=== PATIENT | female | born 1990 | race Caucasian/White ===

== ENCOUNTER 2016-09-21 14:37 | Emergency (ER) | payer SELFPAY ==
[2016-09-21 15:02] VITALS: BP 113/60; PULSE 95; RESP 16; TEMP 98.4; O2SAT 100
--- NOTE | 2016-09-21 15:37 | ED PDOC ---
HPI: Back Time Seen by Provider: 09/21/16 15:15 Chief Complaint (Nursing): Back Pain Chief Complaint (Provider): Back Pain History Per: Patient History/Exam Limitations: no limitations Onset/Duration Of Symptoms: Days Current Symptoms Are (Timing): Still Present Quality Of Discomfort: "Pain" Severity: Moderate Previous Symptoms: None Associated Symptoms: None Exacerbating Factor(s): Movement Additional Complaint(s): Patient is a 26 year old female who presents to ED for back pain for 2 weeks. Patient states she was helping to change car tire when she developed lower back pain that has since worsened. Notes that she initially tried Motrin for the pain but due to her Gastritis has needed to stop taking it. Reports pain radiates into bilateral legs. Denies urinary/bowel incontinence, weakness, numbness or paresthesia. Patient requesting diagnostic studies Past Medical History Reviewed: Historical Data, Nursing Documentation, Vital Signs Vital Signs: Last Vital Signs Temp 98.4 F 09/21/16 14:58 Pulse 95 H 09/21/16 14:58 Resp 16 09/21/16 14:58 BP 113/60 09/21/16 14:58 Pulse Ox 100 09/21/16 14:58 - Medical History PMH: Asthma, Gastritis - Surgical History Surgical History: No Surg Hx - Family History Family History: States: Unknown Family Hx - Living Arrangements Living Arrangements: With Family - Immunization History Hx Tetanus Toxoid Vaccination: No Hx Influenza Vaccination: No Hx Pneumococcal Vaccination: No - Home Medications Home Medications: Ambulatory Orders Medication Instructions Recorded Clindamycin [Cleocin] 300 mg PO Q6 #28 cap 05/09/16 Prednisone [Deltasone] 40 mg PO DAILY #6 tablet 05/09/16 Lansoprazole [Prevacid] 30 mg PO DAILY #15 capsule. 09/21/16 Naproxen [Naprosyn Tab] 1 tab PO Q8 PRN #15 tab 09/21/16 diaZEpam [Valium] 5 mg PO Q6 PRN #8 tab 09/21/16 - Allergies Allergies/Adverse Reactions: Allergies Allergy/AdvReac Type Severity Reaction Status Date / Time No Known Allergies Allergy Verified 01/05/16 11:18 Review of Systems Cardiovascular: Negative for: Chest Pain Gastrointestinal: Negative for: Nausea, Vomiting, Diarrhea Genitourinary Female: Negative for: Incontinence Musculoskeletal: Positive for: Back Pain Neurological: Negative for: Weakness, Numbness Physical Exam - Reviewed Nursing Documentation Reviewed: Yes Vital Signs Reviewed: Yes - Physical Exam Appears: Positive for: Non-toxic, No Acute Distress Skin: Positive for: Normal Color, Warm Eye Exam: Positive for: Normal appearance Neck: Positive for: Normal, Painless ROM Back: Positive for: Normal Inspection, Other (bilateral paralumbar tenderness ) . Negative for: L CVA Tenderness, R CVA Tenderness Extremity: Positive for: Normal ROM Neurologic/Psych: Positive for: Alert, Oriented. Negative for: Motor/Sensory Deficits - ECG O2 Sat by Pulse Oximetry: 100 Medical Decision Making Medical Decision Making: Time: 1519 Initial Impression: Back pain Initial Plan: -- Urine preg -- Toradol IM Time: 1554 Patient refused the Toradol at this time, states she does not want an injection. Requesting something PO Scribe Attestation: Documented by Elba Askew, acting as a scribe for Billy Alamo PA-C. Provider Scribe Attestation: All medical record entries made by the Scribe were at my direction and personally dictated by me. I have reviewed the chart and agree that the record accurately reflects my personal performance of the history, physical exam, medical decision making, and the department course for this patient. I have also personally directed, reviewed, and agree with the discharge instructions and disposition. Disposition - Clinical Impression Clinical Impression: Back strain - Patient ED Disposition Is Patient to be Admitted: No - Disposition Referrals: [facility] [Outside] Disposition: Routine/Home Disposition Time: 16:11 Condition: FAIR Prescriptions: Naproxen [Naprosyn Tab] 1 tab PO Q8 PRN #15 tab PRN Reason: Pain, Moderate (4-7) Lansoprazole [Prevacid] 30 mg PO DAILY #15 capsule. diaZEpam [Valium] 5 mg PO Q6 PRN #8 tab PRN Reason: Muscle Spasm Instructions: Back Pain (ED) Forms: [facility] ED School/Work Excuse
== END 2016-09-21 16:12 | disposition home or self-care (01) ==
LOC: H.ER 14:37
DX: M54.9 Dorsalgia, unspecified (principal)

== ENCOUNTER 2016-11-15 14:37 | Emergency (ER) | payer MEDICAID ==
[2016-11-15 14:47] VITALS: BP 98/70; PULSE 75; RESP 18; TEMP 98; O2SAT 100
[2016-11-15] MEDS ORDERED: Sodium Chloride 0.9% 1,000 ML IV STA (15:33)
--- NOTE | 2016-11-15 16:07 | ED PDOC ---
HPI: Abdomen Time Seen by Provider: 11/15/16 15:22 Chief Complaint (Nursing): Abdominal Pain Chief Complaint (Provider): abdominal pain History Per: Patient History/Exam Limitations: no limitations Onset/Duration Of Symptoms: Days (4) Outside of [place] travel?: No Current Symptoms Are (Timing): Still Present Location Of Pain/Discomfort: Diffuse Quality Of Discomfort: Cramping Associated Symptoms: Nausea (only with eating. ,), Diarrhea (soft stool), Loss Of Appetite. denies: Fever, Chills, Vomiting, Back Pain, Chest Pain, Constipation, Urinary Symptoms Alleviating Factors: Other (partner in household with same symptoms) Past Medical History Reviewed: Historical Data, Nursing Documentation, Vital Signs Vital Signs: Last Vital Signs Temp 98.0 F 11/15/16 14:43 Pulse 75 11/15/16 14:43 Resp 18 11/15/16 14:43 BP 98/70 L 11/15/16 14:43 Pulse Ox 100 11/15/16 16:29 - Medical History PMH: Asthma, Gastritis - Family History Family History: States: Unknown Family Hx - Immunization History Hx Tetanus Toxoid Vaccination: No Hx Influenza Vaccination: No Hx Pneumococcal Vaccination: No - Home Medications Home Medications: Ambulatory Orders Medication Instructions Recorded Clindamycin [Cleocin] 300 mg PO Q6 #28 cap 05/09/16 Prednisone [Deltasone] 40 mg PO DAILY #6 tablet 05/09/16 Lansoprazole [Prevacid] 30 mg PO DAILY #15 capsule. 09/21/16 Naproxen [Naprosyn Tab] 1 tab PO Q8 PRN #15 tab 09/21/16 diaZEpam [Valium] 5 mg PO Q6 PRN #8 tab 09/21/16 Dicyclomine [Bentyl] 20 mg PO TID #30 tab 11/15/16 Famotidine [Pepcid] 20 mg PO BID #16 tab 11/15/16 - Allergies Allergies/Adverse Reactions: Allergies Allergy/AdvReac Type Severity Reaction Status Date / Time No Known Allergies Allergy Verified 01/05/16 11:18 Review of Systems ROS Statement: Except As Marked, All Systems Reviewed And Found Negative Constitutional: Negative for: Fever, Chills Gastrointestinal: Positive for: Nausea, Abdominal Pain. Negative for: Vomiting Physical Exam - Reviewed Nursing Documentation Reviewed: Yes Vital Signs Reviewed: Yes - Physical Exam Appears: Positive for: Non-toxic, No Acute Distress, Uncomfortable Head Exam: Positive for: ATRAUMATIC, NORMAL INSPECTION, NORMOCEPHALIC Skin: Positive for: Normal Color, Warm, DRY Eye Exam: Positive for: EOMI, Normal appearance, PERRL ENT: Positive for: Normal ENT Inspection Neck: Positive for: Normal, Painless ROM Cardiovascular/Chest: Positive for: Regular Rate, Rhythm Respiratory: Positive for: CNT, Normal Breath Sounds Gastrointestinal/Abdominal: Positive for: Bowel Sounds, Soft, Tenderness ( diffuse) Back: Positive for: Normal Inspection Extremity: Positive for: Normal ROM Neurologic/Psych: Positive for: Alert, Oriented - Laboratory Results Result Diagrams: 11/15/16 16:00 11/15/16 16:00 - ECG O2 Sat by Pulse Oximetry: 100 - Progress ED Course And Treament: impression: viral GI. will give fluids, bently labs re-eval Medical Decision Making Medical Decision Making: dx: viral GI tx in Ed effective pt feels better will be d/c on bently for cramps and pepcid for nausea advised to return to ED if worsened Disposition - Clinical Impression Clinical Impression: Abdominal cramps - Patient ED Disposition Is Patient to be Admitted: No Counseled Patient/Family Regarding: Studies Performed, Diagnosis, Need For Followup, Rx Given - Disposition Disposition: Routine/Home Disposition Time: 16:43 Condition: STABLE Prescriptions: Dicyclomine [Bentyl] 20 mg PO TID #30 tab Famotidine [Pepcid] 20 mg PO BID #16 tab Instructions: Gastroenteritis (ED) Forms: [facility] ED School/Work Excuse Print Language: ECUADOREAN
[2016-11-15 16:16] LABS: BASO # 0.1 K/uL (0.0-0.2); EOS # 0.2 K/uL (0.0-0.7); EOS % 2.1 % (0.0-4.0); HEMATOCRIT 40.2 % (34.0-47.0); LYMPH % 37.4 % (20.0-40.0); MEAN CELL VOLUME 83.1 fl (81.0-99.0); MEAN CORPUSCULAR HEMOGLOBIN 28.5 pg (27.0-31.0); MEAN CORPUSCULAR HGB CONC 34.3 g/dL (33.0-37.0); MEAN PLATELET VOLUME 8.5 fl (7.2-11.7); MONO # 0.7 K/uL (0.0-0.8); MONO % 8.3 % (0.0-10.0); NEUT # 4.1 K/uL (1.8-7.0); NEUT % 51.2 % (50.0-75.0); RED CELL DISTRIBUTION WIDTH 13.6 % (11.5-14.5); WHITE BLOOD COUNT 7.9 K/uL (4.8-10.8)
[2016-11-15 16:26] LABS: ALB/GLOB RATIO 1.4 (1.0-2.1); ALKALINE PHOSPHATASE 45 U/L (38-126); ALT/SGPT 26 U/L (9-52); AST/SGOT 28 U/L (14-36); BILIRUBIN,TOTAL 1.3 mg/dl (0.2-1.3); BLOOD UREA NITROGEN 10 mg/dl (7-17); CALCIUM 9.3 mg/dL (8.4-10.2); CARBON DIOXIDE 26 mmol/L (22-30); CHLORIDE 103 mmol/L (98-107); GFR AFRICAN-AMERICAN > 60; GLUCOSE,RANDOM 70 mg/dL (65-105); SODIUM 138 mmol/l (132-148); TOTAL PROTEIN 7.8 G/DL (6.3-8.2)
[2016-11-15 16:29] LABS: POTASSIUM 4.9 MMOL/L (3.6-5.0)
[2016-11-15 17:41] LABS: RBC URINE 4 /hpf (0-3); URINE BACTERIA RARE (<OCC); URINE BILIRUBIN NEGATIVE (NEGATIVE); URINE BLOOD NEGATIVE (NEGATIVE); URINE COLOR YELLOW (YELLOW); URINE GLUCOSE (UA) NEG (Normal); URINE KETONE NEGATIVE (NEGATIVE); URINE LEUKOCYTE ESTERASE NEG Leu/uL (Negative); URINE PROTEIN NEGATIVE (NEGATIVE); URINE UROBILINOGEN 0.2-1.0 mg/dL (0.2-1.0); WBC URINE 1 /hpf (0-5)
== END 2016-11-15 17:05 | disposition home or self-care (01) ==
LOC: H.ER 14:37
DX: K29.70 Gastritis, unspecified, without bleeding (principal); R11.0 Nausea; J45.909 Unspecified asthma, uncomplicated; R19.7 Diarrhea, unspecified

== ENCOUNTER 2017-02-26 17:09 | Emergency (ER) | payer MEDICAID ==
[2017-02-26 17:27] VITALS: BP 105/71; PULSE 90; RESP 18; TEMP 98; O2SAT 100
--- NOTE | 2017-02-26 19:02 | ED PDOC ---
HPI: Skin/Bite Injury Time Seen by Provider: 02/26/17 17:34 Chief Complaint (Nursing): Abnormal Skin Integrity Chief Complaint (Provider): Abscess History Per: Patient Additional Complaint(s): Pt in ED for possible abscess below umbilical area x 4 days. Reports yellowish drainage. Denies fever. Pt is concerned it may be infected. Past Medical History Vital Signs: Last Vital Signs Temp 98 F 02/26/17 17:23 Pulse 90 02/26/17 17:23 Resp 18 02/26/17 17:23 BP 105/71 02/26/17 17:23 Pulse Ox 100 02/26/17 17:23 - Medical History PMH: Asthma, Gastritis - Family History Family History: States: Unknown Family Hx - Immunization History Hx Tetanus Toxoid Vaccination: No Hx Influenza Vaccination: No Hx Pneumococcal Vaccination: No - Home Medications Home Medications: Ambulatory Orders Medication Instructions Recorded Clindamycin [Cleocin] 300 mg PO Q6 #28 cap 05/09/16 Prednisone [Deltasone] 40 mg PO DAILY #6 tablet 05/09/16 Lansoprazole [Prevacid] 30 mg PO DAILY #15 capsule.dr 09/21/16 Naproxen [Naprosyn Tab] 1 tab PO Q8 PRN #15 tab 09/21/16 diaZEpam [Valium] 5 mg PO Q6 PRN #8 tab 09/21/16 Dicyclomine [Bentyl] 20 mg PO TID #30 tab 11/15/16 Famotidine [Pepcid] 20 mg PO BID #16 tab 11/15/16 Clindamycin [Cleocin] 300 mg PO BID #14 cap 02/26/17 Ibuprofen [Motrin] 600 mg PO Q6 #20 tab 02/26/17 - Allergies Allergies/Adverse Reactions: Allergies Allergy/AdvReac Type Severity Reaction Status Date / Time No Known Allergies Allergy Verified 01/05/16 11:18 - ECG O2 Sat by Pulse Oximetry: 100 Disposition - Clinical Impression Clinical Impression: Abscess, Cellulitis - Disposition Condition: STABLE Prescriptions: Clindamycin [Cleocin] 300 mg PO BID #14 cap Ibuprofen [Motrin] 600 mg PO Q6 #20 tab Instructions: Abscess (ED), Cellulitis (ED) Forms: [employer] (Ukrainian)
== END 2017-02-26 19:10 | disposition home or self-care (01) ==
LOC: H.ER 17:09
DX: L02.211 Cutaneous abscess of abdominal wall (principal)

== ENCOUNTER 2017-03-18 17:27 | Emergency (ER) | payer MEDICAID ==
[2017-03-18 17:36] VITALS: BP 103/65; PULSE 71; RESP 18; TEMP 99; O2SAT 100
--- NOTE | 2017-03-18 18:34 | ED PDOC ---
HPI: CCC, URI, Sore Throat Time Seen by Provider: 03/18/17 17:31 Chief Complaint (Nursing): ENT Problem Chief Complaint (Provider): Throat pain History Per: Patient History/Exam Limitations: no limitations Onset/Duration Of Symptoms: Days (2) Additional Complaint(s): Patient is a 26 y/o female with a past medical history of asthma presenting to the emergency department for a sore throat ongoing for two days with associated feeling of general weakness. Denies ear pain or other complaints. PCP: Dr. Kyara Marie Past Medical History Reviewed: Historical Data, Nursing Documentation, Vital Signs Vital Signs: Last Vital Signs Temp 99 F 03/18/17 17:32 Pulse 71 03/18/17 17:32 Resp 18 03/18/17 17:32 BP 103/65 03/18/17 17:32 Pulse Ox 100 03/18/17 18:40 - Medical History PMH: Asthma, Gastritis - Surgical History Surgical History: No Surg Hx - Family History Family History: States: Unknown Family Hx - Immunization History Hx Tetanus Toxoid Vaccination: No Hx Influenza Vaccination: No Hx Pneumococcal Vaccination: No - Home Medications Home Medications: Ambulatory Orders Medication Instructions Recorded Clindamycin [Cleocin] 300 mg PO Q6 #28 cap 05/09/16 Prednisone [Deltasone] 40 mg PO DAILY #6 tablet 05/09/16 Lansoprazole [Prevacid] 30 mg PO DAILY #15 capsule. 09/21/16 Naproxen [Naprosyn Tab] 1 tab PO Q8 PRN #15 tab 09/21/16 diaZEpam [Valium] 5 mg PO Q6 PRN #8 tab 09/21/16 Dicyclomine [Bentyl] 20 mg PO TID #30 tab 11/15/16 Famotidine [Pepcid] 20 mg PO BID #16 tab 11/15/16 Clindamycin [Cleocin] 300 mg PO BID #14 cap 02/26/17 Ibuprofen [Motrin] 600 mg PO Q6 #20 tab 02/26/17 Ibuprofen [Motrin] 600 mg PO Q6 #20 tab 03/18/17 - Allergies Allergies/Adverse Reactions: Allergies Allergy/AdvReac Type Severity Reaction Status Date / Time No Known Allergies Allergy Verified 01/05/16 11:18 Review of Systems ROS Statement: Except As Marked, All Systems Reviewed And Found Negative Constitutional: Positive for: Weakness ENT: Positive for: Throat Pain. Negative for: Ear Pain Physical Exam - Reviewed Nursing Documentation Reviewed: Yes Vital Signs Reviewed: Yes - Physical Exam Appears: Positive for: Well, Non-toxic, No Acute Distress Head Exam: Positive for: ATRAUMATIC, NORMAL INSPECTION, NORMOCEPHALIC Skin: Positive for: Normal Color, Warm, Dry Eye Exam: Positive for: Normal appearance ENT: Positive for: Pharyngeal Erythema. Negative for: Other (pharyngeal ulcerations) Neck: Positive for: Normal Cardiovascular/Chest: Positive for: Regular Rate, Rhythm Respiratory: Negative for: Accessory Muscle Use, Respiratory Distress Extremity: Positive for: Normal ROM Neurologic/Psych: Positive for: Alert, Oriented (x3) - ECG O2 Sat by Pulse Oximetry: 100 (RA) Pulse Ox Interpretation: Normal Medical Decision Making Medical Decision Making: Time: 18:00 Initial impression: Throat pain Initial plan: Motrin 600 mg PO Rapid STREP test Strep (-) Scribe Attestation: Documented by Paula Carmichael, acting as a scribe for MARY Ward. Provider Scribe Attestation: All medical record entries made by the Scribe were at my direction and personally dictated by me. I have reviewed the chart and agree that the record accurately reflects my personal performance of the history, physical exam, medical decision making, and the department course for this patient. I have also personally directed, reviewed, and agree with the discharge instructions and disposition. Disposition - Clinical Impression Clinical Impression: Pharyngitis - Patient ED Disposition Is Patient to be Admitted: No - Disposition Disposition: Routine/Home Disposition Time: 19:00 Condition: STABLE Prescriptions: Ibuprofen [Motrin] 600 mg PO Q6 #20 tab Instructions: Pharyngitis (ED) Forms: [employer] (Pashto) - POA Present On Arrival: None
== END 2017-03-18 19:34 | disposition home or self-care (01) ==
LOC: H.ER 17:27
DX: J02.9 Acute pharyngitis, unspecified (principal)

== ENCOUNTER 2017-05-04 22:12 | Emergency (ER) | payer MEDICAID ==
[2017-05-04 22:26] VITALS: BP 119/72; RESP 16; TEMP 99.1; O2SAT 99
[2017-05-04] MEDS ORDERED: Albuterol-Ipratrop 3 mg / 0.5 (3 ml) UD ONE (22:36)
[2017-05-04] MEDS ORDERED: Albuterol-Ipratrop 3 mg / 0.5 (3 ml) UD INH STA (22:40)
[2017-05-04 22:44] VITALS: PULSE 73
--- NOTE | 2017-05-04 22:49 | ED PDOC ---
HPI: CCC, URI, Sore Throat Time Seen by Provider: 05/04/17 22:36 Chief Complaint (Nursing): Cough, Cold, Congestion Chief Complaint (Provider): URI History Per: Patient Additional Complaint(s): Pt ambulates into ED with c.o cough x 3 days. Patient c.o difficulty breathing when laying down. Patient states she was needs ventolin pump but doesnt have f.u with MD until Tuesday. Past Medical History Reviewed: Nursing Documentation, Vital Signs Vital Signs: Last Vital Signs Temp 99.1 F 05/04/17 22:22 Pulse 73 05/04/17 22:41 Resp 16 05/04/17 22:22 BP 119/72 05/04/17 22:22 Pulse Ox 99 05/06/17 20:41 - Medical History PMH: Asthma, Gastritis - Surgical History Surgical History: No Surg Hx - Family History Family History: States: Unknown Family Hx - Living Arrangements Living Arrangements: With Family - Social History Current smoker - smoking cessation education provided: No Alcohol: None Drugs: Denies - Immunization History Hx Tetanus Toxoid Vaccination: No Hx Influenza Vaccination: No Hx Pneumococcal Vaccination: No - Home Medications Home Medications: Ambulatory Orders Medication Instructions Recorded Clindamycin [Cleocin] 300 mg PO Q6 #28 cap 05/09/16 Prednisone [Deltasone] 40 mg PO DAILY #6 tablet 05/09/16 Lansoprazole [Prevacid] 30 mg PO DAILY #15 capsule. 09/21/16 Naproxen [Naprosyn Tab] 1 tab PO Q8 PRN #15 tab 09/21/16 diaZEpam [Valium] 5 mg PO Q6 PRN #8 tab 09/21/16 Dicyclomine [Bentyl] 20 mg PO TID #30 tab 11/15/16 Famotidine [Pepcid] 20 mg PO BID #16 tab 11/15/16 Clindamycin [Cleocin] 300 mg PO BID #14 cap 02/26/17 Ibuprofen [Motrin] 600 mg PO Q6 #20 tab 02/26/17 Ibuprofen [Motrin] 600 mg PO Q6 #20 tab 03/18/17 Albuterol 0.042% [Albuterol 0.042% 3 ml IH Q6 #1 packet 05/04/17 Inhal Yvrose (1.25mg/3ml) UD] Methylprednisolone [Medrol Dose 4 mg PO DAILY #21 mg 05/04/17 Pack (21 tabs)] Nebulizer [Compact Compressor 1 dev XX PRN PRN #1 dev 05/04/17 Nebulizer] - Allergies Allergies/Adverse Reactions: Allergies Allergy/AdvReac Type Severity Reaction Status Date / Time No Known Allergies Allergy Verified 01/05/16 11:18 Review of Systems ROS Statement: Except As Marked, All Systems Reviewed And Found Negative Respiratory: Positive for: Cough, Shortness of Breath Physical Exam - Reviewed Nursing Documentation Reviewed: Yes Vital Signs Reviewed: Yes - Physical Exam Appears: Positive for: Well, Non-toxic, No Acute Distress Head Exam: Positive for: ATRAUMATIC, NORMAL INSPECTION, NORMOCEPHALIC Skin: Positive for: Normal Color, Warm, DRY Eye Exam: Positive for: EOMI, Normal appearance, PERRL ENT: Positive for: Normal ENT Inspection Neck: Positive for: Normal, Painless ROM Cardiovascular/Chest: Positive for: Regular Rate, Rhythm Respiratory: Positive for: CNT, Normal Breath Sounds Gastrointestinal/Abdominal: Positive for: Normal Exam, Bowel Sounds, Soft Back: Positive for: Normal Inspection Extremity: Positive for: Normal ROM Neurologic/Psych: Positive for: Alert, Oriented - ECG O2 Sat by Pulse Oximetry: 99 Medical Decision Making Medical Decision Making: Medicated with Duo neb and prednisone PO Pt doing well on re-eval, no complaints. Lungs CTA bilaterally POX: 100% on RA Disposition - Clinical Impression Clinical Impression: URI (upper respiratory infection) - Patient ED Disposition Is Patient to be Admitted: No - Disposition Disposition: Routine/Home Disposition Time: 23:00 Condition: STABLE Prescriptions: Albuterol 0.042% [Albuterol 0.042% Inhal Yvrose (1.25mg/3ml) UD] 3 ml IH Q6 #1 packet Methylprednisolone [Medrol Dose Pack (21 tabs)] 4 mg PO DAILY #21 mg Nebulizer [Compact Compressor Nebulizer] 1 dev XX PRN PRN #1 dev PRN Reason: Shortness Of Breath Instructions: Upper Respiratory Infection (ED) Forms: [email or web address] (Tanzanian) - POA Present On Arrival: None
== END 2017-05-04 22:58 | disposition home or self-care (01) ==
LOC: H.ER 22:12
DX: J45.909 Unspecified asthma, uncomplicated (principal)

== ENCOUNTER 2017-06-29 17:00 | Emergency (ER) | payer SELFPAY ==
[2017-06-29 17:47] VITALS: BP 104/58; PULSE 84; RESP 16; TEMP 99; O2SAT 100
--- NOTE | 2017-06-29 19:02 | ED PDOC ---
HPI: CCC, URI, Sore Throat Time Seen by Provider: 06/29/17 18:50 Chief Complaint (Nursing): Cough, Cold, Congestion Chief Complaint (Provider): Cough History Per: Patient History/Exam Limitations: no limitations Onset/Duration Of Symptoms: Days (x3) Current Symptoms Are (Timing): Still Present Associated Symptoms: Myalgias Additional Complaint(s): 26 y/o female with a past medical history of asthma, presents to the emergency department complaining of a cough and body aches for 3 days. Also reports her chest feels tight. No fever upon arrival. Patient has been taking nebulizer treatments, Dayquil, and Robitussin at home without relief. She denies any vomiting or diarrhea. PMD: Dr. Kyara Marie Past Medical History Reviewed: Historical Data, Nursing Documentation, Vital Signs Vital Signs: Last Vital Signs Temp 99.0 F 06/29/17 17:45 Pulse 84 06/29/17 17:45 Resp 16 06/29/17 17:45 BP 104/58 L 06/29/17 17:45 Pulse Ox 100 06/29/17 19:04 - Medical History PMH: Asthma, Gastritis - Family History Family History: States: Unknown Family Hx - Immunization History Hx Tetanus Toxoid Vaccination: No Hx Influenza Vaccination: No Hx Pneumococcal Vaccination: No - Home Medications Home Medications: Ambulatory Orders Medication Instructions Recorded Clindamycin [Cleocin] 300 mg PO Q6 #28 cap 05/09/16 Prednisone [Deltasone] 40 mg PO DAILY #6 tablet 05/09/16 Lansoprazole [Prevacid] 30 mg PO DAILY #15 capsule. 09/21/16 Naproxen [Naprosyn Tab] 1 tab PO Q8 PRN #15 tab 09/21/16 diaZEpam [Valium] 5 mg PO Q6 PRN #8 tab 09/21/16 Dicyclomine [Bentyl] 20 mg PO TID #30 tab 11/15/16 Famotidine [Pepcid] 20 mg PO BID #16 tab 11/15/16 Clindamycin [Cleocin] 300 mg PO BID #14 cap 02/26/17 Ibuprofen [Motrin] 600 mg PO Q6 #20 tab 02/26/17 Ibuprofen [Motrin] 600 mg PO Q6 #20 tab 03/18/17 Albuterol 0.042% [Albuterol 0.042% 3 ml IH Q6 #1 packet 05/04/17 Inhal Yvrose (1.25mg/3ml) UD] Methylprednisolone [Medrol Dose 4 mg PO DAILY #21 mg 05/04/17 Pack (21 tabs)] Nebulizer [Compact Compressor 1 dev XX PRN PRN #1 dev 05/04/17 Nebulizer] Acetaminophen [Acetaminophen Extra 2 tab PO Q6 PRN #24 tablet 06/29/17 Strength] Ibuprofen [Motrin] 600 mg PO Q8 PRN #21 tab 06/29/17 predniSONE [predniSONE Tab] 2 tab PO DAILY #10 tab 06/29/17 - Allergies Allergies/Adverse Reactions: Allergies Allergy/AdvReac Type Severity Reaction Status Date / Time No Known Allergies Allergy Verified 06/29/17 17:45 Review of Systems ROS Statement: Except As Marked, All Systems Reviewed And Found Negative Constitutional: Positive for: Other (body aches). Negative for: Fever, Chills Cardiovascular: Positive for: Other (chest tightness) Respiratory: Positive for: Cough. Negative for: Shortness of Breath, Wheezing Gastrointestinal: Negative for: Vomiting, Diarrhea Physical Exam - Reviewed Nursing Documentation Reviewed: Yes Vital Signs Reviewed: Yes - Physical Exam Appears: Positive for: Non-toxic, No Acute Distress Head Exam: Positive for: ATRAUMATIC, NORMAL INSPECTION, NORMOCEPHALIC Skin: Positive for: Normal Color, Warm, Dry Eye Exam: Positive for: EOMI, Normal appearance, PERRL ENT: Positive for: Pharynx Is (wnl), TM Is/Are (normal bilaterally). Negative for: Tonsillar Exudate, Tonsillar Swelling Neck: Positive for: Normal, Supple Cardiovascular/Chest: Positive for: Regular Rate, Rhythm. Negative for: Murmur Respiratory: Positive for: Decreased Breath Sounds (diminished). Negative for: Rales, Rhonchi, Wheezing, Respiratory Distress Extremity: Positive for: Normal ROM. Negative for: Deformity Neurologic/Psych: Positive for: Alert, Oriented - ECG O2 Sat by Pulse Oximetry: 100 (RA) Pulse Ox Interpretation: Normal Medical Decision Making Medical Decision Making: Time: 18:59 Upon provider evaluation patient is medically stable, and requires no further treatment in the ED at this time. Advised to continue nebulizer treatments at home. Patient will be discharged home with Rx for Tylenol, Motrin, and Prednisone. Counseling was provided and all questions were answered regarding diagnosis and need for follow up with PMD. There is agreement to discharge plan. Return if symptoms persist or worsen. Scribe Attestation: Documented by Leydi Loredo, acting as a scribe for Billy Alamo PA-C Provider Scribe Attestation: All medical record entries made by the Scribe were at my direction and personally dictated by me. I have reviewed the chart and agree that the record accurately reflects my personal performance of the history, physical exam, medical decision making, and the department course for this patient. I have also personally directed, reviewed, and agree with the discharge instructions and disposition. Disposition - Clinical Impression Clinical Impression: Cough - Patient ED Disposition Is Patient to be Admitted: No - Disposition Referrals: [facility] [Outside] Disposition: Routine/Home Disposition Time: 19:00 Condition: FAIR Prescriptions: Acetaminophen [Acetaminophen Extra Strength] 2 tab PO Q6 PRN #24 tablet PRN Reason: Fever >100.4 F Ibuprofen [Motrin] 600 mg PO Q8 PRN #21 tab PRN Reason: Fever >100.4 F predniSONE [predniSONE Tab] 2 tab PO DAILY #10 tab Instructions: Viral Syndrome (ED) Forms: [employer] (Uzbek), [facility] ED School/Work Excuse
== END 2017-06-29 22:16 | disposition home or self-care (01) ==
LOC: H.ER 17:00
DX: J45.909 Unspecified asthma, uncomplicated (principal)

== ENCOUNTER 2018-03-12 23:29 | Emergency (ER) | payer SELFPAY ==
[2018-03-13] VITALS: BP 109/75; PULSE 84; RESP 16; TEMP 98.1; O2SAT 97
[2018-03-13] MEDS ORDERED: Lidocaine 2% w Epi 1:100,000 Inj IJ ONE (00:36)
--- NOTE | 2018-03-13 02:44 | ED PDOC ---
Lower Extremity Pain/Injury Time Seen by Provider: 03/13/18 00:25 Chief Complaint (Nursing): Abnormal Skin Integrity Chief Complaint (Provider): Abnormal Skin Integrity History Per: Patient History/Exam Limitations: no limitations Onset/Duration Of Symptoms: Days (x 2) Current Symptoms Are (Timing): Still Present Additional Complaint(s): 27 year old female presents to the ED with right buttock irritation due to skin tag for 2 days. Area is becoming red and patient is concerned there is an infection. She is unable to sit due to pain. Denies fever and other complaints. PMD: none provided Past Medical History Reviewed: Historical Data, Nursing Documentation, Vital Signs Vital Signs: Last Vital Signs Temp 98.1 F 03/12/18 23:58 Pulse 84 03/12/18 23:58 Resp 16 03/12/18 23:58 BP 109/75 03/12/18 23:58 Pulse Ox 97 03/12/18 23:58 - Medical History PMH: Asthma, Gastritis - Surgical History Surgical History: No Surg Hx - Family History Family History: States: Unknown Family Hx - Immunization History Hx Tetanus Toxoid Vaccination: No Hx Influenza Vaccination: No Hx Pneumococcal Vaccination: No - Home Medications Home Medications: Ambulatory Orders Medication Instructions Recorded Clindamycin [Cleocin] 300 mg PO Q6 #28 cap 05/09/16 Prednisone [Deltasone] 40 mg PO DAILY #6 tablet 05/09/16 Lansoprazole [Prevacid] 30 mg PO DAILY #15 capsule. 09/21/16 RX: Naproxen [Naprosyn Tab] 1 tab PO Q8 PRN #15 tab 09/21/16 diaZEpam [Valium] 5 mg PO Q6 PRN #8 tab 09/21/16 Dicyclomine [Bentyl] 20 mg PO TID #30 tab 11/15/16 Famotidine [Pepcid] 20 mg PO BID #16 tab 11/15/16 Ibuprofen [Motrin] 600 mg PO Q6 #20 tab 02/26/17 RX: Clindamycin [Cleocin] 300 mg PO BID #14 cap 02/26/17 Ibuprofen [Motrin] 600 mg PO Q6 #20 tab 03/18/17 Albuterol 0.042% [Albuterol 0.042% 3 ml IH Q6 #1 packet 05/04/17 Inhal Yvrose (1.25mg/3ml) UD] Methylprednisolone [Medrol Dose 4 mg PO DAILY #21 mg 05/04/17 Pack (21 tabs)] RX: Nebulizer [Compact Compressor 1 dev XX PRN PRN #1 dev 05/04/17 Nebulizer] Acetaminophen [Acetaminophen Extra 2 tab PO Q6 PRN #24 tablet 06/29/17 Strength] Ibuprofen [Motrin] 600 mg PO Q8 PRN #21 tab 06/29/17 RX: predniSONE [predniSONE Tab] 2 tab PO DAILY #10 tab 06/29/17 - Allergies Allergies/Adverse Reactions: Allergies Allergy/AdvReac Type Severity Reaction Status Date / Time No Known Allergies Allergy Verified 06/29/17 17:45 Review of Systems ROS Statement: Except As Marked, All Systems Reviewed And Found Negative Constitutional: Negative for: Fever Skin: Positive for: Other (skin tag on right buttock) Physical Exam - Reviewed Nursing Documentation Reviewed: Yes Vital Signs Reviewed: Yes - Physical Exam Appears: Positive for: Well, Non-toxic, No Acute Distress Head Exam: Positive for: ATRAUMATIC Skin: Positive for: Warm, Dry Eye Exam: Positive for: EOMI, Normal appearance, PERRL Extremity: Positive for: Other (skin tag on right gluteal fold; measures .5 cm with no surrounding erythema) Neurologic/Psych: Positive for: Alert, Oriented. Negative for: Motor/Sensory Deficits - ECG O2 Sat by Pulse Oximetry: 97 (RA) Pulse Ox Interpretation: Normal Medical Decision Making Medical Decision Makin A&P: Skin tag on right buttock Will perform incision to remove --------- -------- Scribe Attestation: Documented by Brianda Keene, acting as a scribe for Simon Haney MD Provider Scribe Attestation: All medical record entries made by the Scribe were at my direction and personally dictated by me. I have reviewed the chart and agree that the record accurately reflects my personal performance of the history, physical exam, medical decision making, and the department course for this patient. I have also personally directed, reviewed, and agree with the discharge instructions and disposition Procedures - Additional Procedures Progress: Skin tag on right buttock was prepped and cleaned with Betadine, anesthetized with Lidocaine 1% with epi in order to excise tag witout complications. Disposition - Clinical Impression Clinical Impression: Skin tag - Patient ED Disposition Is Patient to be Admitted: No - Disposition Referrals: [facility] [Outside] Disposition: Routine/Home Disposition Time: 01:00 Condition: STABLE Additional Instructions: SERGIO SCHAEFER, thank you for letting us take care of you today. Your provider was Simon Haney MD and you were treated for MED EVAL. The emergency medical care you received today was directed at your acute symptoms. If you were prescribed any medication, please fill it and take as directed. It may take several days for your symptoms to resolve. Return to the Emergency Department if your symptoms worsen, do not improve, or if you have any other problems. Please contact your doctor or call one of the physicians/clinics you have been referred to that are listed on the Patient Visit Information form that is included in your discharge packet. Bring any paperwork you were given at discharge with you along with any medications you are taking to your follow up visit. Our treatment cannot replace ongoing medical care by a primary care provider outside of the emergency department. Thank you for allowing the [facility] team to be part of your care today. If you had an X-Ray or CT scan: A Radiologist will review the ED reading if any change in treatment is needed we will contact you. If you had a blood, urine, or wound culture: It will take several days for the results, if any change in treatment is needed we will contact you. If you had an STI test: It will take 48 hours for the results. Please call after 1 week if you have not heard back. Instructions: Skin Tags (Acrochordon), Abscess Incision and Drainage Forms: [employer] (Croatian)
== END 2018-03-13 01:25 | disposition home or self-care (01) ==
LOC: H.ER 23:29
DX: L91.8 Other hypertrophic disorders of the skin (principal)

== ENCOUNTER 2018-07-14 05:50 | Emergency (ER) | payer OTHER ==
[2018-07-14 06:05] VITALS: BMI 28.1
[2018-07-14 06:09] VITALS: RESP 18
[2018-07-14] MEDS ORDERED: Promethazine/Cod 6.25mg-10mg/5ml Syr UD PO STA (06:27)
[2018-07-14] MEDS ORDERED: Albuterol 0.083% Inhal Sol (2.5 mg/3 mL) UD INH ONE (06:27)
[2018-07-14] MEDS ORDERED: Albuterol 0.083% Inhal Sol (2.5 mg/3 mL) UD ONE (06:34)
--- NOTE | 2018-07-14 06:35 | ED PDOC ---
History of Present Illness History of Present Illness: 27 year old female with a history of asthma presents to the ED with fever, cough, congestion and body aches for five days. She also complains of wheezing and shortness of breath. Patient reports taking Dayquil, Nyquil and Aleve. She did not receive the flu shot. PMD: none HPI: Influenza Time Seen by Provider: 07/14/18 06:16 Chief Complaint: Cough, Cold, Congestion Chief Complaint (Provider): Cough, Cold, Congestion History Per: Patient Exam Limitations: no limitations Onset/Duration Of Symptoms: Days (x 5) Sick Contacts (Context): None Past Medical History Reviewed: Historical Data, Nursing Documentation, Vital Signs Vital Signs: Last Vital Signs Temp 100.0 F H 07/14/18 06:05 Pulse 113 H 07/14/18 06:05 Resp 18 07/14/18 06:05 BP 139/75 07/14/18 06:05 Pulse Ox 98 07/14/18 06:05 - Medical History PMH: Asthma, Bronchitis, Gastritis - Surgical History Surgical History: No Surg Hx - Family History Family History: States: Unknown Family Hx - Immunization History Hx Tetanus Toxoid Vaccination: No Hx Influenza Vaccination: No Hx Pneumococcal Vaccination: No - Home Medications Home Medications: Ambulatory Orders Medication Instructions Recorded Clindamycin [Cleocin] 300 mg PO Q6 #28 cap 05/09/16 Prednisone [Deltasone] 40 mg PO DAILY #6 tablet 05/09/16 Lansoprazole [Prevacid] 30 mg PO DAILY #15 capsule. 09/21/16 RX: Naproxen [Naprosyn Tab] 1 tab PO Q8 PRN #15 tab 09/21/16 diaZEpam [Valium] 5 mg PO Q6 PRN #8 tab 09/21/16 Dicyclomine [Bentyl] 20 mg PO TID #30 tab 11/15/16 Famotidine [Pepcid] 20 mg PO BID #16 tab 11/15/16 Ibuprofen [Motrin] 600 mg PO Q6 #20 tab 02/26/17 RX: Clindamycin [Cleocin] 300 mg PO BID #14 cap 02/26/17 Ibuprofen [Motrin] 600 mg PO Q6 #20 tab 03/18/17 Albuterol 0.042% [Albuterol 0.042% 3 ml IH Q6 #1 packet 05/04/17 Inhal Yvrose (1.25mg/3ml) UD] Methylprednisolone [Medrol Dose 4 mg PO DAILY #21 mg 05/04/17 Pack (21 tabs)] RX: Nebulizer [Compact Compressor 1 dev XX PRN PRN #1 dev 05/04/17 Nebulizer] Acetaminophen [Acetaminophen Extra 2 tab PO Q6 PRN #24 tablet 06/29/17 Strength] Ibuprofen [Motrin] 600 mg PO Q8 PRN #21 tab 06/29/17 RX: predniSONE [predniSONE Tab] 2 tab PO DAILY #10 tab 06/29/17 Oseltamivir Phosphate [Tamiflu] 75 mg PO BID #9 capsule 07/14/18 RX: Albuterol 0.083% [Albuterol 3 ml IH Q6H PRN #30 neb 07/14/18 0.083% Inhal Yvrose (2.5 mg/3 ml) UD] - Allergies Allergies/Adverse Reactions: Allergies Allergy/AdvReac Type Severity Reaction Status Date / Time No Known Allergies Allergy Verified 07/14/18 06:05 Review of Systems ROS Statement: Except As Marked, All Systems Reviewed And Found Negative Constitutional: Positive for: Fever, Other (body aches) ENT: Positive for: Nose Congestion Respiratory: Positive for: Cough, Shortness of Breath, Wheezing Physical Exam - Reviewed Nursing Documentation Reviewed: Yes Vital Signs Reviewed: Yes - Physical Exam Appears: Positive for: No Acute Distress Head Exam: Positive for: ATRAUMATIC, NORMAL INSPECTION, NORMOCEPHALIC Skin: Positive for: Normal Color, Warm, Dry Eye Exam: Positive for: EOMI, Normal appearance, PERRL ENT: Positive for: Normal ENT Inspection Neck: Positive for: Normal, Painless ROM, Supple Cardiovascular/Chest: Positive for: Tachycardia (with regular rhythm) Respiratory: Positive for: Normal Breath Sounds. Negative for: Wheezing, Respiratory Distress Gastrointestinal/Abdominal: Positive for: Normal Exam, Soft. Negative for: Tenderness Extremity: Positive for: Normal ROM. Negative for: Deformity Neurologic/Psych: Positive for: Alert, Oriented. Negative for: Motor/Sensory Deficits Medical Decision Making Medical Decision Makin:27 Impression: fever and cough Differential diagnoses: influenza, bronchitis rule out pneumonia Initial Plan: --CXR --Albuterol 0.083% 2.5 mg INH --Motrin 600 gm PO --Phenergan 5 ml PO --Motrin 600 mg PO --Peak flow pre/post --Influenza AB 07:00 --Patient signed out to Dr. Cottrell pending labs, reevaluation and disposition. Scribe Attestation: Documented by Brianda Keene acting as a scribe for Dian Anaya MD Provider Scribe Attestation: All medical record entries made by the Scribe were at my direction and personally dictated by me. I have reviewed the chart and agree that the record accurately reflects my personal performance of the history, physical exam, medical decision making, and the department course for this patient. I have also personally directed, reviewed, and agree with the discharge instructions and disposition. - ECG O2 Sat by Pulse Oximetry: 98 (RA) Pulse Ox Interpretation: Normal Disposition - Clinical Impression Clinical Impression: Influenza A - Patient ED Disposition Is Patient to be Admitted: Transfer of Care Counseled Patient/Family Regarding: Studies Performed, Diagnosis - Disposition Disposition: Transfer of Care Disposition Time: 07:00 Condition: STABLE Additional Instructions: FOLLOW-UP WITH PMD WITHIN 2 DAYS FOR REEVALUATION. Prescriptions: RX: Albuterol 0.083% [Albuterol 0.083% Inhal Yvrose (2.5 mg/3 ml) UD] 3 ml IH Q6H PRN #30 neb PRN Reason: Shortness Of Breath Oseltamivir Phosphate [Tamiflu] 75 mg PO BID #9 capsule Instructions: Flu Forms: [employer] (Kosovan) Patient Signed Over To: Gillian Cottrell
[2018-07-14] MEDS ORDERED: Promethazine/Cod 6.25mg-10mg/5ml Syr UD ONE (06:43)
--- NOTE | 2018-07-14 07:11 | ED PDOC ---
- ECG O2 Sat by Pulse Oximetry: 98 (RA) Pulse Ox Interpretation: Normal Medical Decision Making Medical Decision Makin Patient endorsed by Dr. Anaya, pending flu, CXR and reevaluation. 07 Patient is positive for flu A, will give tamiflu. 0739 CXR FINDINGS: LUNGS: No active pulmonary disease. PLEURA: No significant pleural effusion identified. No pneumothorax apparent. CARDIOVASCULAR: No aortic atherosclerotic calcification present. Normal cardiac size. No pulmonary vascular congestion. OSSEOUS STRUCTURES: No significant abnormalities. VISUALIZED UPPER ABDOMEN: Normal. OTHER FINDINGS: None. IMPRESSION: No acute cardiopulmonary disease appreciated. Scribe Attestation: Documented by Rae Goldsmith, acting as a scribe for Gillian Cottrell MD. Provider Scribe Attestation: All medical record entries made by the Scribe were at my direction and personally dictated by me. I have reviewed the chart and agree that the record accurately reflects my personal performance of the history, physical exam, medical decision making, and the department course for this patient. I have also personally directed, reviewed, and agree with the discharge instructions and disposition. Disposition - Clinical Impression Clinical Impression: Influenza A - POA Present On Arrival: None - Disposition Disposition: Routine/Home Disposition Time: 08:45 Condition: STABLE Additional Instructions: FOLLOW-UP WITH PMD WITHIN 2 DAYS FOR REEVALUATION. Prescriptions: Albuterol 0.083% [Albuterol 0.083% Inhal Yvrose (2.5 mg/3 ml) UD] 3 ml IH Q6H PRN #30 neb PRN Reason: Shortness Of Breath Oseltamivir Phosphate [Tamiflu] 75 mg PO BID #9 capsule Instructions: Flu Forms: [employer] (Guyanese)
--- NOTE | 2018-07-14 07:43 | RAD ---
Date of service: 07/14/2018 HISTORY: fever cough COMPARISON: No prior. TECHNIQUE: Chest PA and lateral FINDINGS: LUNGS: No active pulmonary disease. PLEURA: No significant pleural effusion identified. No pneumothorax apparent. CARDIOVASCULAR: No aortic atherosclerotic calcification present. Normal cardiac size. No pulmonary vascular congestion. OSSEOUS STRUCTURES: No significant abnormalities. VISUALIZED UPPER ABDOMEN: Normal. OTHER FINDINGS: None. IMPRESSION: No acute cardiopulmonary disease appreciated.
[2018-07-14 08:12] VITALS: BP 99/71; PULSE 91; TEMP 98.5
[2018-07-14 14:13] VITALS: O2SAT 98
== END 2018-07-14 09:00 | disposition home or self-care (01) ==
LOC: H.ER 05:50
DX: J11.1 Influenza due to unidentified influenza virus with other respiratory manifestations (principal); J45.909 Unspecified asthma, uncomplicated